=== PATIENT | female | born 1980 | race Caucasian/White ===

== ENCOUNTER 2021-06-19 08:28 | Emergency (ER) | payer MEDICAID, SELFPAY ==
[2021-06-19 08:30] VITALS: BP 157/90; PULSE 78; RESP 17; TEMP 36.2; O2SAT 98; BMI 51.0
--- NOTE | 2021-06-19 08:43 | EDS_ITS ---
HPI History of Present Illness Chief Complaint: Lower Extremity Injury Informant: patient Onset/Context/Timing Onset: Days (3) Context: Gradual Onset Timing: Continuous Quality of Pain: Aching Location: dorsum R midfoot Current Severity: Moderate Maximum Severity: Severe Worsened by: walking/WBing, dorsiflexing foot and toes Relieved by: remaining still Associated Symptoms Associated Symptoms: Negative for Parasthesia, Weakness and Loss of Funtion Narrative Narrative: Patient states she dropped a pole accidentally right on her right dorsal midfoot couple months ago. Has been hurting off and on since then, but worse in the past 3 days in the same location. She states she was at a haunted house for [place] a week ago, and she thinks she stepped wrong while she was there and is unsure if maybe this is related to the worsening pain for the last several days. She denies any other known injury 3 days ago. No neurologic symptoms or fevers/chills or break in the skin/wounds. [facility] Medical History (Updated 06/19/21 @ 08:[address] Cortez Guzman MD) Anemia Medical History no medical history Home Medications hydrochlorothiazide 25 mg PO DAILY 06/19/21 [History Last Taken Unknown] naproxen 500 mg PO BID PRN #14 tab 06/19/21 [Rx Last Taken Unknown] Allergy/AdvReac Type Severity Reaction Status Date / Time Penicillins Allergy Hives Verified 06/19/21 08:28 Social History Smoking Status: Former smoker ROS ROS ED Constitutional Constitutional ED: Denies chills or fever(s) Musculoskeletal Musculoskeletal: Reports extremity pain; Denies neck pain Integumentary Denies Abrasions, rash or wounds Neurologic Neurologic: Denies paresthesias or weakness EXAM Physical Exam Const Vital Signs: 06/19/21 08:30 Temperature 97.2 F L Temperature Source Temporal Pulse Rate 78 Respiratory Rate 17 Blood Pressure 157/90 H Blood Pressure Mean 112 Pulse Ox 98 Oxygen Delivery Method Room Air Positive well nourished, well developed and obese General Appearance ED: well developed and NAD Nutritional Appearance: obese Neck full ROM and supple Back/Spine normal ROM and normal to inspection Extremity Extremity Narrative: Able to range her foot/ankle/toes on the right, but with pain. No bony tenderness throughout the foot and ankle. Normal inspection. No deformities. No signs of skin abnormalities, erythema, excessive warmth. 2+/4 bounding dorsalis pedis pulse with brisk cap refill all toes. Plantar aspect normal-appearing and nontender as well. Neuro oriented x3, no focal motor deficits and no sensory deficits noted Sensorium / Orientation: alert Psych mental status grossly normal and thought process normal Skin no wounds Skin Narrative: Normal-appearing skin without discoloration or lesions throughout the right foot and ankle. Rashes: no rashes MDM MDM MDM Narrative Medical decision making narrative: X-rays are obtained and on mitral rotation 3 views right foot are unremarkable. Patient is reassured there are no acute fractures. If she has persistent pain she is advised to follow-up with podiatry to whom she is referred, and she is given a postop shoe to help ambulating here. Advised to use NSAIDs as needed for pain she was given a dose here prior to discharge. Radiography Diagnostic Testing: Clinical Impression(s) from Imaging Studies Foot X-Ray 06/19/21 08:43 IMPRESSION: No demonstrated acute osseous injury. Electronically Signed: Jono Kang MD at 9:18 EDT Tel , Service support , Discharge Plan Triage Chief Complaint: Lower Extremity Injury ED Provider: Cortez Guzman Dx/Rx/DC Orders Clinical Impression: Acute pain of right foot Instructions: Treating?Strains and Sprains Prescriptions: New naproxen 500 MG tablet 500 mg PO BID PRN Qty: 14 RF: 0 No Action hydrochlorothiazide 25 mg tablet 25 mg PO DAILY RF: 0 Primary Care Provider: Care Physician,No Primary Referrals: Gemma Schroeder DPM [STAFF PHYSICIAN] - 3-5 Days if not improving Care Physician,No Primary [Primary Care Provider] - Disposition Disposition: Home, Self Care
--- NOTE | 2021-06-19 08:43 | RAD_ITS ---
STUDY: X-RAY - RIGHT FOOT CLINICAL: Female, 41 years old. Pain TECHNIQUE: 3 view(s) of the foot. COMPARISON: None. FINDINGS: There is a small plantar calcaneal spur. Normal visualized subtalar, talonavicular, calcaneocuboid, tarsal and tarsometatarsal articulations. Normal metatarsi. Normal metatarsophalangeal joint of the great toe. Normal tibial and fibular sesamoid bones. Normal interphalangeal joint of the great toe. Normal phalanges of the great toe. Normal second through fifth metatarsophalangeal joints. Normal interphalangeal joints and phalanges of the lesser toes. The soft tissue structures are unremarkable. RAD/Foot min 3 Views IMPRESSION: No demonstrated acute osseous injury. Electronically Signed: Jono Kang MD at 9:18 EDT Tel , Service support ,
[2021-06-19 09:32] VITALS: BP 118/76; PULSE 70; RESP 16; O2SAT 95
== END 2021-06-19 09:37 | disposition home or self-care (01) ==
PROVIDERS: Emergency Provider Emergency Medicine
DX: M79.671 Pain in right foot (principal); E66.9 Obesity, unspecified; Z79.899 Other long term (current) drug therapy; Z87.891 Personal history of nicotine dependence
CPT/HCPCS: 73630; 99283

== ENCOUNTER 2021-06-21 09:18 | Emergency (ER) | payer MEDICAID, SELFPAY ==
[2021-06-21 09:19] VITALS: BP 148/99; PULSE 95; RESP 16; TEMP 35.9; O2SAT 97; BMI 50.3
--- NOTE | 2021-06-21 09:46 | EDS_ITS ---
HPI History of Present Illness HPI Narrative: Patient presents with right foot pain that has been getting worse over the past 5 days. Patient was seen here recently and had x-rays which were negative. Patient was given a postop shoe at that time and was referred to podiatry. Patient states she has not followed up with podiatry yet. Patient states her pain is worse today. Patient states it is worse with any walking or movement. Patient denies any specific trauma or injury. Patient describes her pain as burning and pressure. Patient denies any paresthesias or weakness. Chief Complaint: Lower Extremity Injury Onset/Context/Timing Onset: Days (5) Context: Gradual Onset Timing: Continuous Quality of Pain: Burning and - (Pressure) Location: Right second, third, and fourth toes Worsened by: Walking, movement Relieved by: Nothing Associated Symptoms Associated Symptoms: Negative for Parasthesia and Weakness PFSH PFSH Medical History Anemia Hypothyroidism Home Medications hydrochlorothiazide 25 mg PO DAILY 06/19/21 [History Last Taken Unknown] acetaminophen-codeine 1 tab PO Q6H PRN #10 tab 06/21/21 [Rx Last Taken Unknown] Allergy/AdvReac Type Severity Reaction Status Date / Time Penicillins Allergy Hives Verified 06/21/21 09:21 Surgical History H/O: hysterectomy History of cholecystectomy Hx of appendectomy Social History Smoking Status: Former smoker ROS ROS ED Constitutional Constitutional ED: Denies chills or fever(s) Eyes Eyes: Denies blurry vision or change in vision ENT ENT ED: Denies rhinorrhea or sore throat Cardiovascular Cardiovascular: Denies chest pain or palpitations Respiratory/Chest Respiratory/Chest: Denies cough or dyspnea Gastrointestinal Gastrointestinal: Reports nausea; Denies vomiting Genitourinary Genitourinary ED: Denies dysuria or hematuria Musculoskeletal Musculoskeletal: Denies back pain or neck pain Integumentary Denies abscess or rash Neurologic Neurologic: Denies headache(s) or weakness Allergic/Immunologic Allergic/Immunologic ED: Denies mouth swelling or urticaria EXAM Physical Exam Const Vital Signs: 06/21/21 09:19 Temperature 96.6 F L Temperature Source Temporal Pulse Rate 95 Respiratory Rate 16 Blood Pressure 148/99 H Blood Pressure Mean 115 Pulse Ox 97 Oxygen Delivery Method Room Air Positive well nourished, well developed and obese General Appearance ED: well developed Nutritional Appearance: obese HEENT Reports moist mucous membranes Neck full ROM Extremity Extremity Narrative: There is tenderness over the right second, third, and fourth toes. There is no edema or ecchymosis. There is no bony crepitance or step-off. Range of motion was limited in all motion of the right foot and toes secondary to pain. There is no tenderness over the medial or lateral malleoli. There is no calf tenderness. There is no proximal fibular tenderness. There is no tenderness over the fifth metatarsal. Pedal pulses are equal bilaterally. Sensation was intact to light touch in all digits. Capillary refill was less than 2 seconds in all digits. Neuro oriented x3, CN's II-XII intact bilaterally, moves all extremities and no sensory deficits noted Sensorium / Orientation: alert Motor Exam: strength 5/5 throughout MDM MDM MDM Narrative Medical decision making narrative: Patient was given a dose of Western here. X- rays of the right foot were repeated. There are 3 views. On my interpretation, there is no acute fracture. There is a plantar spur noted. Radiologist also interpreted the x-rays and agrees. CBC was within normal limits. Sed rate was elevated at 42. Uric acid was slightly elevated at 7.7. C-reactive protein was slightly elevated at 29.8. Patient was advised of her findings. Patient was instructed to continue the anti-inflammatory medicine as needed for her pain. Patient was given a prescription for a short course of Tylenol 3. Patient was instructed to ice and elevate the right foot. Patient was instructed to continue using the postop shoe. Patient was instructed to follow-up with podiatry in 3 to 5 days. Patient understood and was agreeable with the plan. All questions were answered. Lab Data Attestation: I reviewed the patient's lab results. Labs: Laboratory Results - last 24 hr 06/21/21 06/21/21 10:05 10:05 WBC 7.0 RBC 4.82 Hgb 12.1 Hct 38.0 MCV 78.8 L MCH 25.1 L MCHC 31.8 L RDW Std Deviation 42.4 RDW Coeff of Sammi 14.8 H Plt Count 313 MPV 9.6 Immature Gran % (Auto) 0.400 Neut % (Auto) 63.3 Lymph % (Auto) 27.1 O'Brien % (Auto) 6.6 Eos % (Auto) 1.9 Baso % (Auto) 0.7 Absolute Neuts (auto) 4.4 Absolute Lymphs (auto) 1.88 Nucleated RBC % 0 ESR 42 H Uric Acid 7.7 H C-React Prot Ext Range 29.80 H Radiography Diagnostic Testing: Clinical Impression(s) from Imaging Studies Foot X-Ray 06/21/21 10:14 IMPRESSION: Plantar spur. Electronically Signed: Terrell Pedersen MD at 10:31 EDT , Service support , Discharge Plan Triage Chief Complaint: Lower Extremity Injury ED Provider: Isaac Winkler Dx/Rx/DC Orders Clinical Impression: Acute pain of right foot, Inflammation of foot joint Instructions: ED Pain, Acute, Uncertain Cause, ED RICE Prescriptions: New acetaminophen-codeine 300-30 mg tablet 1 tab PO Q6H PRN (Reason: pain) Qty: 10 RF: 0 No Action hydrochlorothiazide 25 mg tablet 25 mg PO DAILY RF: 0 Primary Care Provider: Care Physician,No Primary Referrals: Gemma Schroeder DPM [STAFF PHYSICIAN] - 3-5 Days Care Physician,No Primary [Primary Care Provider] - Disposition Disposition: Home, Self Care
[2021-06-21] MEDS: HYDROcodone Bitartrate/Apap 5/325 Tablet PO (09:57)
[2021-06-21 10:11] LABS: Absolute Lymphocyte Count 1.88 X10^3/uL (0.83-4.51); Absolute Neutrophil Count 4.4 X10^3/uL (2.0-7.7); Basophil# 0.05 X10^3/uL; Basophil% 0.7 % (0-1); Eosinophil# 0.13 X10^3/uL; Eosinophils% 1.9 % (0-5); Hemoglobin 12.1 g/dL (12.0-15.0); Lymphocyte # 1.88 X10^3/ul (0.83-4.51); Lymphocyte % 27.1 % (19-41); Mean Corp Hgb Conc 31.8 g/dL (32-36); Mean Corpuscular Hgb 25.1 pg (27.0-32.0); Mean Corpuscular Volume 78.8 fL (81-99); Mean Platelet Vol. 9.6 fl (6.2-12.0); Monocyte# 0.46 X10^3/uL; Monocyte% 6.6 % (0-10); NRBC Flagged by Analyzer 0 % (0-5); Neutrophil % 63.3 % (47-70); Platelet Count 313 K/mm3 (150-450); RBC Distribution Width CV 14.8 % (11.6-14.6); RBC Distribution Width SD 42.4 fl (35.1-43.9); Red Blood Count 4.82 M/mm3 (4.2-5.4)
--- NOTE | 2021-06-21 10:14 | RAD_ITS ---
STUDY: X-RAY - RIGHT FOOT CLINICAL: Female, 41 years old. Injury/Pain TECHNIQUE: 3 view(s) of the foot. COMPARISON: Comparison is made with prior study dated 06/19/2021. FINDINGS: There is a plantar calcaneal spur. Normal visualized subtalar, talonavicular, calcaneocuboid, tarsal and tarsometatarsal articulations. Normal metatarsi. Normal metatarsophalangeal joint of the great toe. Normal tibial and fibular sesamoid bones. Normal interphalangeal joint of the great toe. Normal phalanges of the great toe. Normal second through fifth metatarsophalangeal joints. Normal interphalangeal joints and phalanges of the lesser toes. The soft tissue structures are unremarkable. RAD/Foot min 3 Views IMPRESSION: Plantar spur. Electronically Signed: Terrell Pedersen MD at 10:31 EDT , Service support ,
[2021-06-21 10:22] LABS: Uric Acid 7.7 mg/dL (2.6-6.0)
[2021-06-21 10:23] LABS: Erythrocyte Sedimentation Rate 42 mm/hr (0-30)
[2021-06-21 11:04] VITALS: PULSE 88; RESP 16; TEMP 36.9; O2SAT 99
== END 2021-06-21 11:08 | disposition home or self-care (01) ==
PROVIDERS: Emergency Provider Emergency Medicine
DX: M19.071 Primary osteoarthritis, right ankle and foot (principal); E66.9 Obesity, unspecified; Z87.891 Personal history of nicotine dependence
CPT/HCPCS: 36415; 73630; 84550; 85025; 85652; 86140; 99283

== ENCOUNTER 2022-08-14 12:11 | Emergency (ER) | payer MEDICAID, SELFPAY ==
[2022-08-14 12:12] VITALS: BP 138/87; PULSE 98; RESP 18; TEMP 36.2; O2SAT 97; BMI 50.3
--- NOTE | 2022-08-14 12:56 | EKG12_ITS ---
Test Reason : CP Blood Pressure : / mmHG Vent. Rate : 074 BPM Atrial Rate : 074 BPM P-R Int : 160 ms QRS Dur : 092 ms QT Int : 374 ms P-R-T Axes : 025 -35 -13 degrees QTc Int : 415 ms Normal sinus rhythm Left axis deviation Abnormal ECG Confirmed by DOUGLAS SUNSHINE, LORIE ([id number]), website/blog editor JEWEL MICHAEL ([id number]) on 08/15/2022 12:53:59 PM Referred By: KASSANDRA Confirmed By:LORIE COLE MD
--- NOTE | 2022-08-14 12:56 | RAD_ITS ---
EXAM: XR CHEST, 1 VIEW CLINICAL INDICATION: chest pain TECHNIQUE: Frontal view of the chest. This report was created using [employer] report generation technology. COMPARISON: None. FINDINGS: LUNGS AND PLEURAL SPACES: Unremarkable. No consolidation or edema. No pneumothorax. No effusion. HEART: Unremarkable. Cardiac silhouette not enlarged. MEDIASTINUM: Central airways and mediastinal contour are unremarkable. BONES/JOINTS: Unremarkable. SOFT TISSUES: Unremarkable. RAD/Chest 1 View (Portable) IMPRESSION: No radiographic evidence of acute cardiopulmonary disease. Electronically Signed: Laureano Crabtree MD at 13:27 EST ,
--- NOTE | 2022-08-14 12:57 | CT_ITS ---
EXAM: CT ABDOMEN AND PELVIS WITHOUT INTRAVENOUS CONTRAST CLINICAL INDICATION: Right flank pain. Prior appendectomy, cholecystectomy and uterus removed TECHNIQUE: Helically acquired images were obtained of the abdomen and pelvis without intravenous contrast. This CT exam was performed using one or more of the following dose reduction techniques: automated exposure control, adjustment of the mA and/or kV according to patient size, and/or use of iterative reconstruction technique. This report was created using [employer] report generation technology. RADIATION DOSE: CTDIvol = 32.20 mGy, DLP = 1600.67 mGy-cm COMPARISON: CT abdomen and pelvis with contrast 06/11/2015. FINDINGS: LOWER THORAX: Unremarkable. Lung bases are clear. No cardiomegaly. No significant pericardial effusion. ABDOMEN: LIVER: Unremarkable. Homogeneous. GALLBLADDER AND BILE DUCTS: Surgical clips in the gallbladder fossa area from cholecystectomy. No intra- or extrahepatic biliary ductal dilation. PANCREAS: Unremarkable. No focal cystic mass. SPLEEN: Unremarkable. Normal size without focal cystic or solid mass. ADRENALS: Unremarkable. No nodules. KIDNEYS AND URETERS: Abnormal thickening of the left renal pelvis containing staghorn calculus extending to the left lower infundibulum. There is minimal left hydronephrosis. STOMACH AND BOWEL: Unremarkable. No stomach or bowel distention. No focal inflammatory change. PELVIS: APPENDIX: Postsurgical absence of the appendix. BLADDER: Unremarkable. REPRODUCTIVE: Postsurgical absence of the uterus. 3.8 x 2.7 cm ovoid density in the right side of the upper pelvis is uncertain for normal right ovary. ABDOMEN and PELVIS: INTRAPERITONEAL SPACE: Unremarkable. No ascites or other fluid collection. No free air. BONES/JOINTS: Unremarkable. No suspicious lytic or blastic abnormality. SOFT TISSUES: Unremarkable. No discrete abdominal or pelvic wall hernia. VASCULATURE: Unremarkable. Abdominal aorta is non-dilated. LYMPH NODES: Unremarkable. No enlarged lymph nodes. CT/Abdomen/Pelvis without Cont IMPRESSION: 1. Abnormal thickening of the left renal pelvis containing large staghorn calculus extending to the left lower renal infundibulum and mild left hydronephrosis. These are new findings when compared to 06/11/2015. 2. 3.8 x 2.7 cm ovoid density in the right upper pelvis is uncertain for normal right ovary since there has been interval hysterectomy. Please correlate with operative history. Electronically Signed: Laureano Crabtree MD at 13:43 EST ,
[2022-08-14 13:02] VITALS: O2SAT 98
[2022-08-14] MEDS: Aspirin 81 MG TAB.CHEW 324 MG PO (13:04)
[2022-08-14 13:14] LABS: Mucous, Urine 0 SEEN /hpf (<or=2+); Red Blood Cells-Urine 0 SEEN /hpf (0-5)
[2022-08-14 13:17] LABS: Color, Urine Yellow (Yellow); Glucose, Dipstick Normal (Normal); Ketone-Dipstick Negative (Negative); Leukocyte Esterase-Dipstick 500 /ul (Negative); Nitrite-Dipstick Positive (Negative); Occult Blood-Urine 250 /ul (Negative); Protein-Dipstick 30 mg/dl (Negative); Urine Bilirubin Dipstick Negative (Negative); Urine Clarity Clear (Clear); Urine Urobilinogen Normal (Normal)
[2022-08-14 13:18] LABS: Absolute Lymphocyte Count 2.33 X10^3/uL (0.83-4.51); Absolute Neutrophil Count 4.9 X10^3/uL (2.0-7.7); Basophil# 0.06 X10^3/uL; Basophil% 0.7 % (0-1); Eosinophil# 0.17 X10^3/uL; Hematocrit 41.3 % (37-47); Hemoglobin 13.3 g/dL (12.0-15.0); Lymphocyte # 2.33 X10^3/ul (0.83-4.51); Lymphocyte % 28.1 % (19-41); Mean Corp Hgb Conc 32.2 g/dL (32-36); Mean Corpuscular Hgb 26.8 pg (27.0-32.0); Mean Corpuscular Volume 83.1 fL (81-99); Mean Platelet Vol. 10.5 fl (6.2-12.0); Monocyte# 0.76 X10^3/uL; Monocyte% 9.2 % (0-10); NRBC Flagged by Analyzer 0 % (0-5); Neutrophil # 4.94 X10^3/uL (2.7-7.7); Neutrophil % 59.5 % (47-70); Platelet Count 336 K/mm3 (150-450); RBC Distribution Width CV 13.2 % (11.6-14.6); RBC Distribution Width SD 39.5 fl (35.1-43.9); Red Blood Count 4.97 M/mm3 (4.2-5.4); White Blood Count 8.3 K/mm3 (4.4-11.0)
[2022-08-14 13:24] LABS: Bacteria 2+ /hpf (None Seen); Squamous Epithelial Cells - UA 0-5 SEEN /hpf (5-10); White Blood Cells 50-100 SEEN /hpf (0-5)
[2022-08-14 13:34] LABS: Anion Gap 7 (5-15); BUN 16 mg/dL (7-18); BUN/Creat Ratio 17.6 RATIO (10-20); Calcium,Total 9.2 mg/dL (8.5-10.1); Chloride 101 mmol/L (98-107); Creatinine, Serum 0.91 mg/dL (0.55-1.02); EST Glomerular Filtration Rate 73 mL/min (>60); Est Glom Filt Rate - Afr Amer 88 mL/min (>60); Estimated Creatinine Clearance 70.96 ml/min; Glucose 89 mg/dL (74-106); Potassium 3.3 mmol/L (3.5-5.1); Sodium Level 137 mmol/L (136-145); Troponin-I HS < 3 pg/mL (3.0-54.0)
[2022-08-14] MEDS: Nitrofurantoin Macrocrystals 100 MG Capsule PO (13:46)
[2022-08-14 13:47] VITALS: BP 107/64; PULSE 18; RESP 61; O2SAT 97
--- NOTE | 2022-08-14 14:20 | EDS_ITS ---
HPI History of Present Illness Chief Complaint: Chest Pain Informant: patient Onset/Context/Timing Onset: Today Activity at onset: sudden Timing: Intermittent and Lasts (10 to 20 minutes) Quality: Positive for Pressure Location: Substernal and Right Chest Worsened By: Nothing Relieved By: Nothing Associated Symptoms: Positive for Nausea, Dyspnea, Lightheadedness, Acid Reflux and Palpitations; Negative for Vomiting, Diaphoresis, Cough or Fever Narrative Narrative: Patient presents with chest pain that began today. Patient states it has been intermittent since around midnight. Patient states it last for proxy 10 to 20 minutes. Patient describes it as a pressure. Patient states it is over the substernal area and then sometimes over the right chest. Patient states nothing makes it worse and nothing makes it better. Patient admits to some nausea but denies any vomiting. Patient admits to some shortness of breath but denies any cough or fevers. Patient admits to some lightheadedness and palpitations. Patient denies any dysuria but admits to some urinary frequency. Patient admits to some right flank pain. CVD Risk Factors: Positive for Hypertension and Smoking; Negative for Diabetes, Hypercholesterolemia or Family History 1' </=55 PE Risk Factors: Negative for Recent Travel/Surgery, Recent Immobilization, Prior DVT or PE, Cancer or OCP + Smoking + >/=35 PFSH PFSH Medical History Anemia delivery delivered DIC (disseminated intravascular coagulation) Hypothyroidism Home Medications hydrochlorothiazide 25 mg tablet 25 mg PO DAILY 06/19/21 [History Last Taken Unknown] nitrofurantoin monohydrate/macrocrystals 100 mg capsule 100 mg PO Q12 #10 CAPSULES 08/14/22 [Rx Last Taken Unknown] Allergy/AdvReac Type Severity Reaction Status Date / Time Penicillins Allergy Hives Verified 06/21/21 09:21 Family History no significant family his no significant family history Surgical History H/O: hysterectomy History of cholecystectomy Hx of appendectomy Social History Smoking Status: Current every day smoker tobacco type: e-cigarettes ROS ROS ED Constitutional Constitutional ED: Denies chills or fever(s) Eyes Eyes: Reports blurry vision; Denies change in vision ENT ENT ED: Denies rhinorrhea or sore throat Cardiovascular Cardiovascular: Reports chest pain, palpitations and racing heartbeat Respiratory/Chest Respiratory/Chest: Reports dyspnea; Denies cough Gastrointestinal Gastrointestinal: Reports nausea; Denies abdominal pain or vomiting Genitourinary Genitourinary ED: Reports urinary frequency; Denies dysuria or hematuria Musculoskeletal Musculoskeletal: Reports back pain; Denies neck pain Integumentary Denies abscess or rash Neurologic Neurologic: Reports headache(s); Denies weakness Allergic/Immunologic Allergic/Immunologic ED: Denies mouth swelling or urticaria EXAM Physical Exam Const Vital Signs: 08/14/22 12:12 08/14/22 12:23 08/14/22 13:02 Temperature 97.2 F L Temperature Source Temporal Pulse Rate 98 Respiratory Rate 18 Respiratory Effort Normal Non-Labored Short of Breath Respiratory Pattern Normal Blood Pressure 138/87 H Blood Pressure Mean 104 Pulse Ox 97 98 Oxygen Delivery Method Room Air Room Air 08/14/22 13:47 Temperature Temperature Source Pulse Rate 18 L Respiratory Rate 61 H Respiratory Effort Respiratory Pattern Blood Pressure 107/64 Blood Pressure Mean 78 Pulse Ox 97 Oxygen Delivery Method Room Air Positive well nourished, well developed and obese General Appearance ED: well developed and NAD Nutritional Appearance: obese HEENT normocephalic and atraumatic Eyes PERRL and EOMs intact bilaterally Neck supple and no JVD Chest Wall palpation of chest normal Resp normal respiratory effort and clear to auscultation bilaterally Effort and Inspection: Negative for respiratory distress Cardio regular rate, regular rhythm and no murmurs GI normal to inspection, nondistended, normoactive bowel sounds, soft to palpation, non-tender and non-distended Extremity normal to inspection General Extremety ED: Negative for edema or tenderness General Extremity: Negative for edema Neuro oriented x3, CN's II-XII intact bilaterally and no sensory deficits noted Sensorium / Orientation: awake and alert Motor Exam: strength 5/5 throughout Psych mental status grossly normal Heart Score History: Slightly/Non-Suspicious ECG: Normal Age: </= 45 years Risk Factors: 1 or 2 Risk Factors Troponin: </= Normal Limit Score: 1 MDM MDM MDM Narrative Medical decision making narrative: Patient was given dose of aspirin here. EKG was obtained. On my interpretation, it showed a normal sinus rhythm with a rate of 74. [place] interval, QRS interval, and QTc intervals were all normal. There is left axis deviation at -35. There are no acute ST or T wave changes. Portable 1 view chest x-ray was obtained. On my interpretation, lung garcia are clear. There is normal cardiac silhouette. Bony thorax is normal. There is no acute process noted. Radiologist also interpreted the x-ray and agrees. CBC was within normal limits. Basic metabolic profile was essentially within normal limits. Potassium was slightly low at 3.3. High-sensitivity troponin was less than 3. Urinalysis shows a leukocyte esterases of 500 with 50-100 white blood cells and 2+ bacteria. There are positive nitrites. Urine culture was ordered. Patient was given a dose of Macrobid here. CT scan of the abdomen pelvis was obtained. There is a staghorn calculus in the left renal pelvis with mild hydronephrosis. Patient does not have any left flank pain. This was interpreted by the radiologist and reviewed by myself. Patient was advised of her findings. Patient was given a prescription for Macrobid. Patient was instructed to drink plenty of fluids. Patient was instructed to take Tylenol or ibuprofen as needed for any pain. Patient was instructed to follow-up with her primary care physician in 3 to 5 days for repeat evaluation. Patient understood and was agreeable with the plan. All questions were answered. Lab Data Attestation: I reviewed the patient's lab results. Labs: Laboratory Results - last 24 hr 08/14/22 08/14/22 08/14/22 12:30 12:30 13:05 WBC 8.3 RBC 4.97 Hgb 13.3 Hct 41.3 MCV 83.1 MCH 26.8 L MCHC 32.2 RDW Std Deviation 39.5 RDW Coeff of Sammi 13.2 Plt Count 336 MPV 10.5 Immature Gran % (Auto) 0.500 Neut % (Auto) 59.5 Lymph % (Auto) 28.1 Ingham % (Auto) 9.2 Eos % (Auto) 2.0 Baso % (Auto) 0.7 Absolute Neuts (auto) 4.9 Absolute Lymphs (auto) 2.33 Nucleated RBC % 0 Sodium 137 Potassium 3.3 L Chloride 101 Carbon Dioxide 29.0 Anion Gap 7 BUN 16 Creatinine 0.91 Estim Creat Clear Calc 70.96 Est GFR (MDRD) Af Amer 88 Est GFR (MDRD) Non-Af 73 BUN/Creatinine Ratio 17.6 Glucose 89 Calcium 9.2 Troponin I High Sens < 3 L Urine Color Yellow Urine Clarity Clear Urine pH 7.0 Ur Specific Blanchard 1.010 Urine Protein 30 H Urine Glucose (UA) Normal Urine Ketones Negative Urine Occult Blood 250 H Urine Nitrite Positive H Urine Bilirubin Negative Urine Urobilinogen Normal Ur Leukocyte Esterase 500 H Urine RBC 0 SEEN Urine WBC 50-100 SEEN Ur Squamous Epith Cells 0-5 SEEN Urine Bacteria 2+ Urine Mucus 0 SEEN Radiography Diagnostic Testing: Clinical Impression(s) from Imaging Studies Chest X-Ray 08/14/22 12:56 IMPRESSION: No radiographic evidence of acute cardiopulmonary disease. Electronically Signed: Laureano Crabtree MD at 13:27 EST Reading Location ID and State: [facility] / [place] , Service support , Abdomen/Pelvis CT 08/14/22 12:57 IMPRESSION: 1. Abnormal thickening of the left renal pelvis containing large staghorn calculus extending to the left lower renal infundibulum and mild left hydronephrosis. These are new findings when compared to 06/11/2015. 2. 3.8 x 2.7 cm ovoid density in the right upper pelvis is uncertain for normal right ovary since there has been interval hysterectomy. Please correlate with operative history. Electronically Signed: Laureano Crabtree MD at 13:43 EST , Discharge Plan Triage Chief Complaint: Chest Pain ED Provider: Isaac Winkler Dx/Rx/DC Orders Clinical Impression: Chest pain of uncertain etiology, Urinary tract infection, Exogenous obesity Instructions: ED Chest Pain, Uncertain Cause, ED Cystitis Female Adult Prescriptions: New nitrofurantoin monohyd/m-cryst [nitrofurantoin monohyd/m-cryst] 100 mg capsule 100 mg PO Q12 Qty: 10 0RF No Action hydrochlorothiazide 25 mg tablet 25 mg PO DAILY Label Comments: take 1 tablet by mouth once daily Primary Care Provider: Care Physician,No Primary Referrals: Mel Marin MD [Med Staff - Nature Photographer] - 3-5 Days Care Physician,No Primary [Primary Care Provider] - Disposition Disposition: Home, Self Care
[2022-08-14 14:34] VITALS: BP 124/81; PULSE 81; RESP 16; O2SAT 98
== END 2022-08-14 14:36 | disposition home or self-care (01) ==
PROVIDERS: Emergency Provider Emergency Medicine; Visit Provider Emergency Medicine
DX: R07.9 Chest pain, unspecified (principal); N13.6 Pyonephrosis; R35.0 Frequency of micturition; R11.0 Nausea; R06.02 Shortness of breath; R00.2 Palpitations; E66.09 Other obesity due to excess calories; F17.290 Nicotine dependence, other tobacco product, uncomplicated; Z79.899 Other long term (current) drug therapy
CPT/HCPCS: 71045; 74176; 80048; 81001; 84484; 85025; 87077; 87086; 87088; 87186; 93005; 99284

== ENCOUNTER 2022-10-18 17:11 | Emergency (ER) | payer MEDICAID, SELFPAY ==
[2022-10-18 17:11] VITALS: BP 164/107; PULSE 88; RESP 16; TEMP 36.2; O2SAT 98; BMI 52.6
--- NOTE | 2022-10-18 17:43 | CT_ITS ---
EXAMINATION : Head CT w/out contrast HISTORY : Headache with hypertension COMPARISON : None. TECHNIQUE : Multiple contiguous axial images were obtained from the skull base to the vertex without intravenous contrast. A radiation dose optimization technique was used for this scan. FINDINGS : The ventricles and sulci are normal in size. There is no evidence for acute intracranial hemorrhage, mass effect, or midline shift. There is no extra-axial fluid collection. There is normal da silva-white differentiation, without CT evidence of acute ischemia or infarct. The skull base and calvarium are unremarkable. The orbits are unremarkable. The paranasal sinuses are clear. The mastoid air cells are well-aerated. The soft tissues are unremarkable. CT/Brain/Head without Contrast IMPRESSION: No acute intracranial abnormality. Electronically Signed: Jaiden Prakash MD at 18:46 EST ,
--- NOTE | 2022-10-18 17:44 | EKG12_ITS ---
Test Reason : SOB Blood Pressure : / mmHG Vent. Rate : 076 BPM Atrial Rate : 076 BPM P-R Int : 160 ms QRS Dur : 092 ms QT Int : 404 ms P-R-T Axes : 050 -40 001 degrees QTc Int : 454 ms Normal sinus rhythm Left axis deviation Cannot rule out Anterior infarct , age undetermined Abnormal ECG Confirmed by DOUGLAS SUNSHINE, LORIE ([id number]), offline editor JEWEL MICHAEL ([id number]) on 10/19/2022 9:03:03 AM Referred By: CHAPO Confirmed By:LORIE COLE MD
--- NOTE | 2022-10-18 17:45 | EX.ED.DYSGE1 ---
HPI History of Present Illness Chief Complaint: Hypertension Narrative Narrative: Patient with past medical history of hypertension, states she takes hydrochlorothiazide 25 mg at night and has so for years, presents with elevated blood pressure reading and multiple somatic complaints. She states over the last few days she has had a headache, dizziness and lightheadedness, felt like her ears were ringing, and on fire. She denies any fevers or chills. No cough. She states she has had intermittent chest pain and shortness of breath since this morning but denies any upper respiratory infection type symptoms. She last took her medication yesterday evening. Because she has been feeling poorly, her mother took her blood pressure and it was elevated at 174 systolic. She denies any exacerbating or alleviating factors. She states that she has been keeping track of her blood pressure, and is usually normal in the 120s. [facility] Medical History (Updated 10/18/22 @ 19:31 by Laureano Gabriel MD) Anemia delivery delivered DIC (disseminated intravascular coagulation) Hypertension Home Medications hydrochlorothiazide 25 mg tablet 25 mg PO DAILY 06/19/21 [History Last Taken Unknown] Allergy/AdvReac Type Severity Reaction Status Date / Time No Known Allergies Allergy Verified 10/18/22 17:13 Surgical History H/O: hysterectomy History of cholecystectomy Hx of appendectomy Social History Smoking Status: Current every day smoker tobacco type: e-cigarettes ROS ROS ED ROS Narrative Constitutional: No fever, no chills. HEENT: No sore throat. No neck pain. No loss of vision. No rhinorrhea. Cardiovascular: Intermittent chest pain. No palpitations. No pedal edema. Respiratory: No cough, intermittent shortness of breath. Abdominal: No abdominal pain. No nausea. No vomiting. Genitourinary: No dysuria. No hematuria. Musculoskeletal: No myalgias. No arthralgias. Neurologic: Positive headaches. Positive dizziness. Positive lightheadedness. Positive tinnitus. Skin: No rash. No change in color. Psychiatric: No depression. No anxiety. EXAM Physical Exam Narrative Exam Narrative: Afebrile. Vital signs noted. Nontoxic-appearing. HEENT: Normocephalic. Atraumatic. PERRL, EOMI. Neck soft and supple. No point tenderness or step off. Cardiovascular: Regular rate and rhythm. No murmurs, rubs, or gallops appreciated. Respiratory: No tachypnea. Lungs clear to auscultation bilaterally. Gastrointestinal: Abdomen soft, nontender, with normoactive bowel sounds. No rebound or guarding. Neurological: Awake. Alert. Nonfocal, nonlateralizing. Skin: No rash. Normal color. No pallor. Musculoskeletal: No pedal edema. Full range of motion extremities. Const Vital Signs: 10/18/22 17:11 10/18/22 18:39 Temperature 97.2 F L Temperature Source Temporal Pulse Rate 88 Respiratory Rate 16 Respiratory Pattern Normal Blood Pressure 164/107 H Blood Pressure Mean 126 Pulse Ox 98 Oxygen Delivery Method Room Air MDM MDM MDM Narrative Medical decision making narrative: In triage, blood pressure is elevated at 164/107. I do feel that she is having more of a hypertensive urgency currently, but given her lightheadedness, and headache, I am concerned for hypertensive intracranial hemorrhage. While her neurological examination is grossly unremarkable, CT imaging of the brain will be obtained. For her chest pain and shortness of breath, I will perform laboratory work along with EKG and chest x-ray. I do feel that she may require more medication or additional medication for her elevated blood pressure. Upon repeat examination, she is feeling improved and her blood pressure is 126 systolic. I reviewed her laboratory work and she has a normal white count of 7.3, hemoglobin normal at 13.4, hematocrit 40.7, platelet count normal at 342. CMP shows normal sodium of 139 and potassium normal at 3.6 with glucose appropriately elevated at 100 with a normal anion gap of 8. High-sensitivity troponin is 3, and this is greater than a 6-hour troponin. BNP is normal at 6.8. CT of the brain radiology report was reviewed and there is no evidence of acute intracranial hemorrhage. I interpreted her chest x-ray as no acute process, no pneumothorax or pneumonia, and I reviewed the radiology report which confirms this. At this point in time, she was told that she may need to be started on medication to control her blood pressure. She should follow-up with her primary care provider as soon as possible. Return instructions to the emergency department were reviewed. Disposition is discharged home in stable condition. Lab Data Attestation: I reviewed the patient's lab results. Labs: Laboratory Results - last 24 hr 10/18/22 10/18/22 10/18/22 18:07 18:07 18:07 WBC 7.3 RBC 4.88 Hgb 13.4 Hct 40.7 MCV 83.4 MCH 27.5 MCHC 32.9 RDW Std Deviation 38.9 RDW Coeff of Sammi 13.0 Plt Count 342 MPV 9.6 Immature Gran % (Auto) 0.400 Neut % (Auto) 57.9 Lymph % (Auto) 30.1 [place] % (Auto) 8.8 Eos % (Auto) 1.8 Baso % (Auto) 1.0 Absolute Neuts (auto) 4.2 Absolute Lymphs (auto) 2.19 Nucleated RBC % 0 Sodium 139 Potassium 3.6 Chloride 104 Carbon Dioxide 27.0 Anion Gap 8 BUN 10 Creatinine 0.88 Estim Creat Clear Calc 73.38 Est GFR (MDRD) Af Amer 91 Est GFR (MDRD) Non-Af 75 BUN/Creatinine Ratio 11.3 Glucose 100 Calcium 9.1 Total Bilirubin 0.30 AST 16 ALT 31 Alkaline Phosphatase 95 Troponin I High Sens 3 B-Natriuretic Peptide 6.8 Total Protein 7.8 Albumin 3.4 Globulin 4.4 H Albumin/Globulin Ratio 0.8 L Radiography Diagnostic Testing: Clinical Impression(s) from Imaging Studies Brain CT 10/18/22 17:43 IMPRESSION: No acute intracranial abnormality. Electronically Signed: Jaiden Prakash MD at 18:46 EST , Chest X-Ray 10/18/22 18:24 IMPRESSION: No acute radiographic abnormalities. Electronically Signed: Jaiden Prakash MD at 18:49 EST , Discharge Plan Triage Chief Complaint: Hypertension ED Provider: Laureano Gabriel Dx/Rx/DC Orders Clinical Impression: Elevated blood pressure reading with diagnosis of hypertension, Headache, Dizziness Instructions: ED Dizziness, Uncertain Cause, ED Hypertension, Established, ED Pain, Acute, Uncertain Cause Prescriptions: No Action hydrochlorothiazide 25 mg tablet 25 mg PO DAILY Label Comments: take 1 tablet by mouth once daily Primary Care Provider: Care Physician,No Primary Referrals: [facility] Doctor,Out of [Non-Staff] - Activity Restrictions/Additional Instructions: Keep track of your blood pressure for your primary care provider. Follow-up with them as soon as possible as you may need to be started on additional medication for your blood pressure. Return with sustained high blood pressure, new or worsening symptoms. Disposition Disposition: Home, Self Care
[2022-10-18 18:18] LABS: Absolute Lymphocyte Count 2.19 X10^3/uL (0.83-4.51); Absolute Neutrophil Count 4.2 X10^3/uL (2.0-7.7); Basophil# 0.07 X10^3/uL; Eosinophil# 0.13 X10^3/uL; Eosinophils% 1.8 % (0-5); Hematocrit 40.7 % (37-47); Hemoglobin 13.4 g/dL (12.0-15.0); Lymphocyte # 2.19 X10^3/ul (0.83-4.51); Lymphocyte % 30.1 % (19-41); Mean Corp Hgb Conc 32.9 g/dL (32-36); Mean Corpuscular Hgb 27.5 pg (27.0-32.0); Mean Corpuscular Volume 83.4 fL (81-99); Mean Platelet Vol. 9.6 fl (6.2-12.0); Monocyte# 0.64 X10^3/uL; Monocyte% 8.8 % (0-10); NRBC Flagged by Analyzer 0 % (0-5); Neutrophil # 4.22 X10^3/uL (2.7-7.7); Neutrophil % 57.9 % (47-70); Platelet Count 342 K/mm3 (150-450); RBC Distribution Width SD 38.9 fl (35.1-43.9); Red Blood Count 4.88 M/mm3 (4.2-5.4); White Blood Count 7.3 K/mm3 (4.4-11.0)
--- NOTE | 2022-10-18 18:24 | RAD_ITS ---
INDICATION: Chest pain EXAMINATION/TECHNIQUE: X-RAY - XR Chest 1 View COMPARISON: 08/14/2022. FINDINGS: The lungs are clear. The cardiomediastinal silhouette is unremarkable. No pleural effusion or pneumothorax. No acute osseous abnormalities. RAD/Chest 1 View (Portable) IMPRESSION: No acute radiographic abnormalities. Electronically Signed: Jaiden Prakash MD at 18:49 EST ,
[2022-10-18 18:31] LABS: ALB/GLOB Ratio 0.8 RATIO (0.9-2.4); AST(SGOT) 16 U/L (15-37); Alanine Aminotransfer ALT/SGPT 31 U/L (13-56); Albumin, Serum 3.4 g/dL (3.2-5.0); Alkaline Phosphatase 95 U/L (45-117); Anion Gap 8 (5-15); BUN 10 mg/dL (7-18); BUN/Creat Ratio 11.3 RATIO (10-20); Calcium,Total 9.1 mg/dL (8.5-10.1); Chloride 104 mmol/L (98-107); Creatinine, Serum 0.88 mg/dL (0.55-1.02); EST Glomerular Filtration Rate 75 mL/min (>60); Est Glom Filt Rate - Afr Amer 91 mL/min (>60); Estimated Creatinine Clearance 73.38 ml/min; Globulin 4.4 g/dL (2.2-4.2); Glucose 100 mg/dL (74-106); Potassium 3.6 mmol/L (3.5-5.1); Protein, Total 7.8 g/dL (6.4-8.2); Sodium Level 139 mmol/L (136-145); Troponin-I HS 3 pg/mL (3.0-54.0)
[2022-10-18 19:12] LABS: BNP,B-Type NATRIURETIC PEPTIDE 6.8 pg/mL (0-100)
[2022-10-18 19:40] VITALS: BP 119/80; PULSE 68; RESP 15; O2SAT 96
== END 2022-10-18 19:45 | disposition home or self-care (01) ==
PROVIDERS: Emergency Provider Emergency Medicine; Visit Provider Emergency Medicine
DX: R42 Dizziness and giddiness (principal); R07.9 Chest pain, unspecified; R06.02 Shortness of breath; I10 Essential (primary) hypertension; R51.9 Headache, unspecified; F17.290 Nicotine dependence, other tobacco product, uncomplicated
CPT/HCPCS: 70450; 71045; 80053; 83880; 84484; 85025; 93005; 99284; A4216

== ENCOUNTER 2024-11-17 11:44 | Observation (INO) | payer MEDICAID, SELFPAY ==
[2024-11-17] VITALS (12 sets, daily range): BP systolic 111–145; BP diastolic 56–110; PULSE 67–104; RESP 10–18; TEMP 36.1–37.1; O2SAT 95–100; BMI 48.7; BMI 49.1
--- NOTE | 2024-11-17 12:12 | CT_ITS ---
PROCEDURE: STROKE BRAIN/HEAD WITHOUT CONT 11/17/2024 REASON FOR EXAM: NEURO DEFICIT, ACUTE, STROKE SUSPECTED TECHNIQUE: CT head without contrast, also with sagittal and coronal reconstructed images obtained. One or more dose reduction techniques were used (e.g., Automated exposure control, adjustment of the mA and/or kV according to patient size, use of iterative reconstruction technique RADIATION DOSE SUMMARY: CTDlvol: 44.99 mGy DLP: 829.85 mGycm COMPARISON: Head CT of 10/18/2022 FINDINGS: No intracranial hemorrhage, mass, or mass effect is seen. Ventricles appear symmetric and within the normal range. No extra-axial fluid collection is seen. The orbits show no abnormality. The visualized paranasal sinuses appear clear, as do the mastoid air cells. No acute osseous process is evident. CT/STROKE Brain/Head without Cont IMPRESSION: No intracranial hemorrhage or other acute process is seen at this time. Follow up imaging if and as clinically appropriate. [place] Alert: No intracranial hemorrhage is seen on this stroke alert. This critical information above was relayed directly by me by telephone to Sukhwinder Spain on 11/17/2024 at 11:42 am with readback verification. Reading Location: [id number]
--- NOTE | 2024-11-17 12:12 | EKG12_ITS ---
Test Reason : NEURO Blood Pressure : */* mmHG Vent. Rate : 82 BPM Atrial Rate : 82 BPM P-R Int : 162 ms QRS Dur : 90 ms QT Int : 386 ms P-R-T Axes : 46 -36 -2 degrees QTcB Int : 450 ms Normal sinus rhythm Left axis deviation Nonspecific T wave abnormality Abnormal ECG Confirmed by DOUGLAS SUNSHINE, LORIE ([id number]), editor news JEWEL MICHAEL ([id number]) on 11/18/2024 8:20:49 AM Referred By: Confirmed By: LORIE COLE MD
--- NOTE | 2024-11-17 12:12 | CT_ITS ---
PROCEDURE: STROKE CTA HEAD AND NECK W/CON 11/17/2024 REASON FOR EXAM: NEURO DEFICIT, ACUTE, STROKE SUSPECTED TECHNIQUE: CTA imaging of the head and neck from the aortic arch to the skull vertex with intravenous contrast. Coronal and Sagittal reconstruction series were provided. 3D, 3D post processing, 3D reconstructions, Maximum intensity projection (MIPs) Volume rendering and Shaded surface rendering was provided. One or more dose reduction techniques were used (e.g., Automated exposure control, adjustment of the mA and/or kV according to patient size, use of iterative reconstruction technique). # of known CTs in the past 12 months: 0 # of known Cardiac Nuclear Medicine Studies in the past 12 months: 0 RADIATION DOSE SUMMARY: CTDlvol: 44.76 mGy DLP: 817.97 mGycm COMPARISON: Head CT of 11/17/2024. FINDINGS: Cervical CT angiogram: No area of stenosis or obstruction is seen. No aneurysm is noted. Intracranial CT angiogram: No area of stenosis or obstruction is seen. No aneurysm is evident. Other findings: Neck: No cervical adenopathy is seen. Lungs: Visualized lung apices are unremarkable in appearance. Bones: Mild degenerative changes of the cervical spine are most apparent at the C5-C6 level. CT/STROKE CTA Head AND Neck W/Con IMPRESSION: No area of stenosis or obstruction is seen. No aneurysm is identified. Reading Location: [id number]
[2024-11-17 12:28] LABS: Absolute Lymphocyte Count 2.36 X10^3/uL (0.83-4.51); Absolute Neutrophil Count 5.8 X10^3/uL (2.0-7.7); Basophil# 0.08 X10^3/uL; Basophil% 0.9 % (0-1); Eosinophil# 0.15 X10^3/uL; Eosinophils% 1.7 % (0-5); Hematocrit 38.8 % (37-47); Hemoglobin 13.1 g/dL (12.0-15.0); Lymphocyte # 2.36 X10^3/ul (0.83-4.51); Lymphocyte % 26.1 % (19-41); Mean Corp Hgb Conc 33.8 g/dL (32-36); Mean Corpuscular Hgb 28.5 pg (27.0-32.0); Mean Corpuscular Volume 84.3 fL (81-99); Mean Platelet Vol. 9.8 fl (6.2-12.0); Monocyte# 0.67 X10^3/uL; Monocyte% 7.4 % (0-10); NRBC Flagged by Analyzer 0 % (0-5); Neutrophil # 5.76 X10^3/uL (2.7-7.7); Neutrophil % 63.6 % (47-70); Platelet Count 371 K/mm3 (150-450); RBC Distribution Width CV 12.2 % (11.6-14.6); RBC Distribution Width SD 36.7 fl (35.1-43.9); White Blood Count 9.1 K/mm3 (4.4-11.0)
[2024-11-17] MEDS: 0.9% Normal Saline (1000mL) 1,000 ML 999 ML IV (12:42)
[2024-11-17 12:43] LABS: International Normalized Ratio 1.1; Prothrombin Time (Protime)PT. 13.9 SECONDS (11.7-14.9)
[2024-11-17] MEDS: Aspirin 325 MG Tablet PO (12:45)
--- NOTE | 2024-11-17 12:50 | CM.ED ---
Social Work: Date of referral: 11/17/24 Reason for referral: Code [place] Alert asbestos removal worker responded to Stroke Alert code and found patient's 9 year old daughter, Majo sitting along the wall on a chair. Roll Builder stayed with Majo and talked with her to keep her company and to help with any fear or anxiety. Majo stated she has 5 brothers and 3 sisters however none of them live with patient and patient's mother. Roll Builder let Majo pick out some stress toys and coloring activities from social work basked as Majo stated she lives to color. asbestos removal worker stayed with her until patient arrived back in the room and at that point, patient denied any other support was needed at that time and that everything was ok. (end time: 12:24) asbestos removal worker checked back in to make sure everything was still ok with patient and patient's daughter which both continued to deny any current needs. (end time 12:50) Eva Knutson, WHIZZER, ELEMENTARY SCHOOL LIBRARIAN
[2024-11-17 12:59] LABS: Bedside Glucose 88 mg/dL (74-106)
--- NOTE | 2024-11-17 13:02 | RAD_ITS ---
PROCEDURE: CHEST 1 VIEW 11/17/2024 REASON FOR EXAM: NEURO DEFICIT, ACUTE, STROKE SUSPECTED TECHNIQUE: Frontal view of the chest. COMPARISON: AP chest 10/18/2022 FINDINGS: Lungs appear clear. No pleural effusion or pneumothorax is noted. The cardiomediastinal silhouette is within the normal range. No acute osseous process is seen. RAD/Chest 1 View IMPRESSION: No evidence of acute cardiopulmonary disease. Reading Location: [id number]
[2024-11-17 13:16] LABS: Troponin T High Sensitivity < 6 ng/L (<=14)
--- NOTE | 2024-11-17 13:24 | EX.ED.DYSGE1 ---
HPI History of Present Illness Chief Complaint: General Illness Narrative Narrative: Patient is a 44-year-old female with past medical history of anemia, hypertension, DIC who presents to the emergency department chief complaint of right-sided facial numbness, vision tilted to the right, right arm numbness and tingling and not feeling right. States that she went to bed around 1 AM and before going to bed she felt well however around 8 AM when she woke up she noted that she developed the symptoms. She was concerned and came here for the valuation management. She states that she has not a water pill for her blood pressure. She feels like her legs are more swollen. She states that currently she does not have a doctor she just moved here. [facility] Medical History Hypertension delivery delivered DIC (disseminated intravascular coagulation) Anemia Home Medications ?Medication ?Instructions ?Recorded ?Last Taken ?Type hydrochlorothiazide 25 mg tablet 25 mg PO DAILY WATER PILL 06/19/21 11/16/24 History diclofenac sodium 50 mg 50 mg PO BID PRN inflammation 11/17/24 11/16/24 History tablet,delayed release Allergy/AdvReac Type Severity Reaction Status Date / Time No Known Allergies Allergy Verified 11/17/24 11:45 Surgical History Hx of appendectomy History of cholecystectomy H/O: hysterectomy Social History Smoking Status: Current every day smoker tobacco type: e-cigarettes ROS ROS ED ROS Narrative Constitutional: Complains of headache as noted above denies lightheadedness or dizziness Eyes: Complains of changes vision as noted above Cardiovascular: Denies chest pain or palpitations Respiratory: Denies coughing wheezing shortness of breath Abdomen: Denies abdominal pain nausea vomit diarrhea : Denies urinary symptoms Neurological: Complains of numbness and tingling as noted above Musculoskeletal: Denies back pain Skin: Denies rashes or lesions EXAM Physical Exam Narrative Exam Narrative: General: Patient is lying in bed rest comfortably did not appear to be in acute distress Head: Atraumatic, normocephalic Eyes: PERRL bilaterally, EOMI bilaterally, no conjunctival injection noted Neck: Soft, supple, trachea midline Cardiovascular: Regular rate and rhythm no murmurs gallops rubs noted Respiratory: Clear to auscultation bilaterally no rales rhonchi or wheezes noted Abdomen: Soft, nondistended, nontender to palpation Extremities: +5/5 strength noted in the bilateral upper and lower extremities, radial pulses +2/4 in the bilateral extremities, no pedal edema on exam Neurological: Patient following commands knew that she was at [facility] year is 2024. NIH is 1 GCS 15 Skin: Warm, dry, intact no rashes or lesions noted Const Vital Signs: 11/17/24 11:45 11/17/24 11:54 11/17/24 12:21 Temperature 97 F L Temperature Source Temporal Pulse Rate 104 H 85 Respiratory Rate 15 10 L Respiratory Pattern Normal Blood Pressure 145/110 H 145/96 H Blood Pressure Mean 121 112 Pulse Ox 99 95 Oxygen Delivery Method Room Air Room Air 11/17/24 12:37 11/17/24 12:42 11/17/24 13:12 Temperature Temperature Source Pulse Rate 87 75 Respiratory Rate 18 15 Respiratory Pattern Blood Pressure 135/79 H 136/87 H Blood Pressure Mean 97 103 Pulse Ox 95 95 Oxygen Delivery Method Room Air 11/17/24 13:30 11/17/24 13:44 Temperature Temperature Source Pulse Rate 78 75 Respiratory Rate 14 14 Respiratory Pattern Blood Pressure 111/75 111/75 Blood Pressure Mean 87 87 Pulse Ox 96 96 Oxygen Delivery Method Room Air MDM MDM MDM Narrative Medical decision making narrative: Patient is a 44-year-old female who presented to the emergency department the chief complaint of right arm numbness tingling, right facial tingling and numbness as well as changes in vision. Her last known well was 1 AM and woke up around 8 AM having the symptoms. She is not a tenecteplase candidate as her presentation was more than 4 and half hours ago. On the differential diagnose includes but not limited to complex migraine, intracranial hemorrhage, large vessel occlusion. Once workup is obtained reviewed she will be reevaluated. Patient CBC reviewed showed no evidence leukocytosis white blood count normal 9.1, hemoglobin 13.1, plate count of 371. Patient INR 1.1, PT 13.9. Patient odium normal 135, potassium normal at 4, creatinine normal 0.85. Patient troponin was less than 6. Patient's EKG reviewed showed sinus rhythm with a rate of 82 bpm IA interval is 162. Patient's proBNP less than 36. Patient's chest x-ray reviewed by myself and by radiology showed no acute cardiopulmonary processes. Patient CT head and brain contrast showed no acute intracranial hemorrhage or other acute processes seen at this time. Patient CTA head and neck was reviewed and showed no area of stenosis or obstruction no aneurysm is identified. I discussed with [facility] teleneurology Dr. Arambula And they are recommending giving aspirin which was ordered and admission for further workup. Will discuss the case with hospitalist. Discussed case with hospitalist Dr. Lord who accept patient for admission. Patient notified is agreeable this plan. States that her vision is improving as her headache is getting better. Patient be given a gram of Tylenol as well. Lab Data Labs: Laboratory Results - last 24 hr 11/17/24 11/17/24 11/17/24 12:02 12:29 12:39 WBC 9.1 RBC 4.60 Hgb 13.1 Hct 38.8 MCV 84.3 MCH 28.5 MCHC 33.8 RDW Std Deviation 36.7 RDW Coeff of Sammi 12.2 Plt Count 371 MPV 9.8 Immature Gran % (Auto) 0.300 Neut % (Auto) 63.6 Lymph % (Auto) 26.1 [place] % (Auto) 7.4 Eos % (Auto) 1.7 Baso % (Auto) 0.9 Absolute Neuts (auto) 5.8 Absolute Lymphs (auto) 2.36 Nucleated RBC % 0 PT 13.9 INR 1.1 APTT 30.0 Sodium 135 Potassium 4.0 Chloride 99 Carbon Dioxide 22.0 Anion Gap 14 BUN 15 Creatinine 0.85 Estim Creat Clear Calc 114.81 Est GFR (MDRD) Non-Af 88 BUN/Creatinine Ratio 17.6 Glucose 96 Calcium 9.2 Troponin T High Sens < 6 NT pro BNP II < 36 POC Glucose 88 Radiography Diagnostic Testing: Clinical Impression(s) from Imaging Studies Brain CT 11/17/24 12:12 IMPRESSION: No intracranial hemorrhage or other acute process is seen at this time. Follow up imaging if and as clinically appropriate. [place] Alert: No intracranial hemorrhage is seen on this stroke alert. This critical information above was relayed directly by me by telephone to Sukhwinder Mensah on 11/17/2024 at 11:42 am with readback verification. Reading Location: [address] Head/Neck CTA 11/17/24 12:12 IMPRESSION: No area of stenosis or obstruction is seen. No aneurysm is identified. Reading Location: [address] Chest X-Ray 11/17/24 13:02 IMPRESSION: No evidence of acute cardiopulmonary disease. Reading Location: [address] Discharge Plan Triage Chief Complaint: General Illness Other Complaint: Upper Extremity Injury ED Provider: Sukhwinder Mensah Dx/Rx/DC Orders Clinical Impression: Headache, Alteration in vision, Facial numbness, Right arm numbness Prescriptions: No Action hydrochlorothiazide 25 mg tablet 25 mg PO DAILY diclofenac sodium 50 mg tablet,delayed release (DR/EC) 50 mg PO BID PRN (Reason: inflammation) Primary Care Provider: Care Physician,No Primary Referrals: Care Physician,No Primary [Primary Care Provider] - Print Language: Chinese Disposition Disposition: Acute Care Hospital [facility]
[2024-11-17 13:28] LABS: Anion Gap 14 (5-15); BUN 15 mg/dL (4-19); BUN/Creat Ratio 17.6 RATIO (10-20); Calcium,Total 9.2 mg/dL (7.6-11.0); Chloride 99 mmol/L (98-108); Creatinine, Serum 0.85 mg/dL (0.70-1.20); EST Glomerular Filtration Rate 88 (>60); Estimated Creatinine Clearance 114.81 ml/min (50-250); Glucose 96 mg/dL (70-99); Sodium Level 135 mmol/L (133-145)
[2024-11-17] MEDS: Ketorolac 15 MG/ML Vial IV (13:38)
[2024-11-17 13:52] LABS: Pro- Brain NATRIURETIC PEPTIDE < 36 pg/mL (<=450)
--- NOTE | 2024-11-17 14:35 | PCM.HP.STD ---
HPI - General General Date of Admission: 11/17/24 Date of Service: 11/17/24 Chief Complaint: Right-sided numbness and tingling and vision changes HPI Narrative DUY DARLING, is a 44 F who presented to [facility] ED on 11/17/2024 with right-sided numbness and tingling and vision changes. Patient has no prior history of stroke. She went to bed around 1 AM and felt fine then, but upon awakening this morning around 8 AM she had symptoms. She had right-sided facial numbness, right arm numbness and tingling, vision issues and headache. Because of this, she came to the ED for further evaluation. CT brain and CTA head/neck were unremarkable. Chest x-ray unremarkable. CBC and BMP unremarkable. She was mildly hypertensive to the 140s over 100s and mildly tachycardic but both of these improved with treatment for her headache. She was evaluated by teleneurology who noted possible complex migraine versus stroke, so she was given aspirin 325 mg and hospitalist was contacted for admission. I saw the patient at bedside in the ED. Patient was sitting back in bed, mildly anxious appearing and flushed appearing in the face but was otherwise answering questions appropriately for me. She noted that her symptoms were moderately improved since arrival to the ED. She states to me that she has had some right-sided facial numbness/tingling and jaw pain over the past few weeks. However, she had no right arm or leg numbness or tingling until this morning. She has also had intermittent headache over the past few weeks and her headache this morning is only slightly worse. She vapes daily but denies any drug use and only occasionally uses alcohol she reports. She has history of hypertension and is on hydrochlorothiazide for this but has no other significant medical history. She otherwise denies any pain or discomfort. No other acute concerns at this time. [facility] Medical History Hypertension delivery delivered DIC (disseminated intravascular coagulation) Anemia Home Medications ?Medication ?Instructions ?Recorded ?Last Taken ?Type hydrochlorothiazide 25 mg tablet 25 mg PO DAILY WATER PILL 06/19/21 11/16/24 History diclofenac sodium 50 mg 50 mg PO BID PRN inflammation 11/17/24 11/16/24 History tablet,delayed release Allergy/AdvReac Type Severity Reaction Status Date / Time No Known Allergies Allergy Verified 11/17/24 11:45 Surgical History (Reviewed 11/17/24 @ 13: by Dr. Sukhwidner Mensah DO) Hx of appendectomy History of cholecystectomy H/O: hysterectomy Social History Smoking Status: Current every day smoker tobacco type: e-cigarettes ROS Constitutional Constitutional: Denies chills, fatigue, fever(s) or weakness Eyes Eyes: Reports blurry vision and change in vision; Denies discharge from eye(s), double vision, erythema, eye pain or loss of vision ENT HEENT: Denies nasal congestion, nasal discharge, sinus pressure or sore throat Cardiovascular Cardiovascular: Denies chest pain Respiratory/Chest Respiratory/Chest: Denies cough or shortness of breath at rest Gastrointestinal Gastrointestinal: Denies abdominal pain Genitourinary Genitourinary: Denies dysuria Musculoskeletal Musculoskeletal: Denies arthralgias or myalgias Neurologic Neurologic: Reports headache(s), numbness and tingling; Denies abnormal speech, confusion, dizziness, focal weakness or paresthesias Psychiatric Psychiatric: Reports anxiety; Denies depression Vital Signs Vital Signs Vital Signs: 11/17/24 11:45 11/17/24 11:54 11/17/24 12:21 Temperature 97 F L Temperature Source Temporal Pulse Rate 104 H 85 Respiratory Rate 15 10 L Respiratory Pattern Normal Blood Pressure 145/110 H 145/96 H Blood Pressure Mean 121 112 Pulse Ox 99 95 Oxygen Delivery Method Room Air Room Air 11/17/24 12:37 11/17/24 12:42 11/17/24 13:12 Temperature Temperature Source Pulse Rate 87 75 Respiratory Rate 18 15 Respiratory Pattern Blood Pressure 135/79 H 136/87 H Blood Pressure Mean 97 103 Pulse Ox 95 95 Oxygen Delivery Method Room Air 11/17/24 13:30 11/17/24 13:44 Temperature Temperature Source Pulse Rate 78 75 Respiratory Rate 14 14 Respiratory Pattern Blood Pressure 111/75 111/75 Blood Pressure Mean 87 87 Pulse Ox 96 96 Oxygen Delivery Method Room Air Weight Weight: 128.82 kg Body Mass Index (BMI) 48.7 Physical Exam Const alert, oriented x3 and no apparent distress Constitutional Narrative: Middle-age female, class III obesity, flushed appearing in the face with facial acne noted, mildly anxious appearing but otherwise sitting back comfortably in bed and answering questions appropriately for me. General Appearance: cooperative and comfortable HEENT normocephalic, head/scalp atraumatic, hearing grossly normal bilaterally, nasal mucous membranes and turbinates normal and moist oral mucous membranes Eyes PERRL, EOMs intact bilaterally and conjunctivae normal Neck full ROM Chest inspection of chest normal Resp normal respiratory effort, normal air movement, no use of accessory muscles and clear to auscultation bilaterally Cardio regular rate, regular rhythm, no murmurs and peripheral pulses 2+ throughout GI normal to inspection, nondistended, normoactive bowel sounds, soft to palpation, non-tender and non-distended Back/Spine normal ROM Extremity normal to inspection, full ROM and no pedal edema Skin no rashes or lesions noted Neuro oriented x3, CN's II-XII intact bilaterally, moves all extremities and no focal motor deficits Speech: speech normal Motor Exam: strength 5/5 throughout Psych mental status grossly normal Mood & Affect: anxious Results Lab / Micro Data 11/17/24 12:02 11/17/24 12:02 Labs: Laboratory Results - last 24 hr 11/17/24 12:02: WBC 9.1, RBC 4.60, Hgb 13.1, Hct 38.8, MCV 84.3, MCH 28.5, MCHC 33.8, RDW Std Deviation 36.7, RDW Coeff of Sammi 12.2, Plt Count 371, MPV 9.8, Immature Gran % (Auto) 0.300, Neut % (Auto) 63.6, Lymph % (Auto) 26.1, [place] % (Auto) 7.4, Eos % (Auto) 1.7, Baso % (Auto) 0.9, Absolute Neuts (auto) 5.8, Absolute Lymphs (auto) 2.36, Nucleated RBC % 0, Sodium 135, Potassium 4.0, Chloride 99, Carbon Dioxide 22.0, Anion Gap 14, BUN 15, Creatinine 0.85, Estim Creat Clear Calc 114.81, Est GFR (MDRD) Non-Af 88, BUN/Creatinine Ratio 17.6, Glucose 96, Calcium 9.2, Troponin T High Sens < 6, NT pro BNP II < 36 11/17/24 12:29: PT 13.9, INR 1.1, APTT 30.0 11/17/24 12:39: POC Glucose 88 Imaging Radiology Impression Brain CT 11/17/24 12:12 IMPRESSION: No intracranial hemorrhage or other acute process is seen at this time. Follow up imaging if and as clinically appropriate. [place] Alert: No intracranial hemorrhage is seen on this stroke alert. This critical information above was relayed directly by me by telephone to Sukhwinder Mensah on 11/17/2024 at 11:42 am with readback verification. Reading Location: [address] Head/Neck CTA 11/17/24 12:12 IMPRESSION: No area of stenosis or obstruction is seen. No aneurysm is identified. Reading Location: [address] Chest X-Ray 11/17/24 13:02 IMPRESSION: No evidence of acute cardiopulmonary disease. Reading Location: [address] Assessment & Plan Assessment/Plan (1) Stroke-like symptoms: PLAN: Plan Patient is a 44-year-old female who presented to [facility] ED on 11/17/2024 with strokelike symptoms. 1. Strokelike symptoms ? Admit under observation status to PCU. Neurology consulted. Presented with symptoms of right sided face, arm and leg numbness and tingling along with vision changes and headache. May be more consistent with complex migraine but cannot rule out stroke. CT brain and CTA head/neck unremarkable. Orders placed per stroke protocol order set. MRI brain and echo with bubble study ordered. Lipid panel, A1c and TSH ordered. Will treat with baby aspirin and high intensity statin for now. 2. Hypertension ? Hold home hydrochlorothiazide for permissive hypertension. 3. Class III obesity ? BMI 48 on admit. Encouraged lifestyle modifications. Complicates hospital course, care and prognosis. 4. Tobacco use ? Vapes on a daily basis. Denied need for nicotine replacement therapy. Discussed cessation. DVT prophylaxis: SCDs CODE STATUS: Full code, verified Expected disposition: Home, 1 to 2 days Total clinical time spent by myself addressing the patient's medical issues, reviewing all the data, and collaborating with patient's care team: 55 minutes. Charges/Coding Visit Charges Inpatient E&M: 30173 Init Hosp L2
[2024-11-17 14:39] LABS: Troponin T High Sens 2 HR < 6 ng/L (<=14)
--- NOTE | 2024-11-17 14:39 | ECHOD_ITS ---
Reason For Study Reason For Study: TIA/STROKE Procedure This was a 2D Doppler, Color Flow transthoracic echocardiogram. Exam performed portable in patient room. Left Ventricle Normal LV size. Left ventricular systolic function is normal. The left ventricular ejection fraction is 60 %. No regional wall motion abnormalities noted. Right Ventricle Normal RV size. Normal systolic function. Atria Normal left atrium. Normal right atrium. Bubble contrast study is negative for PFO/ASD. Mitral Valve Normal mitral valve. Tricuspid Valve Normal tricuspid valve. Aortic Valve Normal aortic valve. Trisinus/trileaflet aortic valve. Pulmonic Valve Normal pulmonic valve. Great Vessels Normal aortic root. The pulmonary artery is normal size. Inferior vena cava collapse with respiration. Pericardium/Pleural No pericardial effusion. Medication Performed a rapid injection of agitated mix of 9 cc saline and 1cc air to assess for atrial septal defect. MMode/2D Measurements & Calculations LVIDd: 4.3 cm IVSd: 1.0 cm LVOT diam: 2.0 cm LVIDs: 2.9 cm LVPWd: 1.5 cm FS: 32.3 % LVOT area: 3.2 cm2 Ao root diam: 3.2 cm LAV(MOD-bp): 49.6 ml LVAd ap4: 30.7 cm2 LAV(MOD-bp) Indexed: 21.8 ml/m2 LVLd ap4: 8.3 cm LAV(MOD-sp2): 48.6 ml EDV(MOD-sp4): 97.2 ml LAV(MOD-sp4): 51.7 ml EDV(sp4-el): 95.7 ml LVAs ap4: 17.1 cm2 LVLs ap4: 6.3 cm ESV(MOD-sp4): 40.0 ml ESV(sp4-el): 39.2 ml EF(MOD-sp4): 58.9 % EF(sp4-el): 59.0 % SV(MOD-sp4): 57.2 ml SV(sp4-el): 56.5 ml LA A4 area: 18.1 cm2 SI(MOD-sp4): 25.1 ml/m2 LA dimension(2D): 4.3 cm RA A4 area: 11.9 cm2 Time Measurements MV dec time: 0.23 sec Doppler Measurements & Calculations MV E max genaro: 75.7 cm/sec Lat Peak E' Genaro: 12.8 cm/sec Med Peak E' Genaro: 12.4 cm/sec MV A max genaro: 62.1 cm/sec E/E' lat: 5.9 E/E' med: 6.1 MV E/A: 1.2 MV V2 max: 81.5 cm/sec MV dec slope: 341.5 cm/sec2 Ao V2 max: 118.9 cm/sec MV max P.7 mmHg Ao max P.7 mmHg MV V2 mean: 53.3 cm/sec Ao V2 mean: 85.7 cm/sec MV mean P.3 mmHg Ao mean P.3 mmHg MV V2 VTI: 25.6 cm Ao V2 VTI: 27.3 cm MVA(VTI): 3.1 cm2 AV (velocity ratio): 0.93 DELISA(I,D): 2.9 cm2 DELISA(V,D): 2.9 cm2 LV V1 max: 108.6 cm/sec SV(LVOT): 80.4 ml PA V2 max: 99.9 cm/sec LV V1 max P.7 mmHg PA V2 mean: 74.3 cm/sec LV V1 mean P.9 mmHg LV V1 mean: 79.7 cm/sec LV V1 VTI: 25.4 cm ECHO/Echo Complete Interpretation Summary Bubble contrast study is negative for PFO/ASD. Normal LV size. Left ventricular systolic function is normal. The left ventricular ejection fraction is 60 %. Structurally normal valves. Ordering Physician: Kavon Lord Referring Physician: ERICKSON PCP Performed By: Latrice Pate RCS
[2024-11-17] MEDS: Metoclopramide 10 MG/2 ML Vial IV (14:47)
[2024-11-17] MEDS: Acetaminophen 500 MG Tablet 1000 MG PO (14:47)
[2024-11-17 15:29] LABS: Hemoglobin A1c 5.5 % (<=5.6)
[2024-11-17 16:52] LABS: Troponin T High Sens 4 HR 15 ng/L (<=14)
[2024-11-17] MEDS: Atorvastatin Calcium 80 MG Tablet PO (21:48)
[2024-11-18] VITALS (7 sets, daily range): BP systolic 114–138; BP diastolic 73–84; PULSE 67–80; RESP 4–16; TEMP 36.6–37; O2SAT 92–98; BMI 49.1
--- NOTE | 2024-11-18 01:45 | CPS ---
patient on nursing pulse ox, pulmonary has non available at this time. rn notified
[2024-11-18 05:54] LABS: Hematocrit 35.7 % (37-47); Hemoglobin 11.8 g/dL (12.0-15.0); Mean Corp Hgb Conc 33.1 g/dL (32-36); Mean Corpuscular Hgb 28.2 pg (27.0-32.0); Mean Corpuscular Volume 85.4 fL (81-99); Mean Platelet Vol. 9.8 fl (6.2-12.0); Platelet Count 320 K/mm3 (150-450); RBC Distribution Width CV 12.2 % (11.6-14.6); RBC Distribution Width SD 38.3 fl (35.1-43.9); Red Blood Count 4.18 M/mm3 (4.2-5.4); White Blood Count 7.1 K/mm3 (4.4-11.0)
[2024-11-18 06:31] LABS: Anion Gap 12 (5-15); BUN 14 mg/dL (4-19); BUN/Creat Ratio 18.2 RATIO (10-20); Calcium,Total 8.7 mg/dL (7.6-11.0); Carbon Dioxide 22.8 mmol/L (21.0-32.0); Chloride 103 mmol/L (98-108); Creatinine, Serum 0.78 mg/dL (0.70-1.20); EST Glomerular Filtration Rate 97 (>60); Estimated Creatinine Clearance 125.75 ml/min (50-250); Glucose 112 mg/dL (70-99); Potassium 3.6 mmol/L (3.3-5.1); Sodium Level 138 mmol/L (133-145)
[2024-11-18 07:00] LABS: Cholesterol 149 mg/dL (<=200); High Density Lipoprotein 43 mg/dL; Low Density Lipoprotein Calc. 81 mg/dL; Triglycerides 129 mg/dL; Very Low Density Lipoprotein 26 mg/dL (5-40); cholesterol:hdl ratio screen 3.49
[2024-11-18] MEDS: Aspirin 81 MG TAB.CHEW PO (07:53)
[2024-11-18] MEDS: Acetaminophen 325 MG Tablet 650 MG PO (07:58)
--- NOTE | 2024-11-18 08:47 | PCM.PN.HOSP ---
Reason for Visit Reason for Visit: Diagnoses Unspecified symptoms and signs involving the nervous system (11/17/24) Subjective Subjective Headache resolved. Right sided paresthesias resolved, though complaining of right arm pain. Objective Data Objective Data Vital Signs: Vital Signs Temp Pulse Resp BP Pulse Ox O2 Del Method 36.6 C 69 16 138/83 H 95 Room Air 11/18/24 07:15 11/18/24 07:15 11/18/24 07:15 11/18/24 07:15 11/18/24 07:15 11/18/24 08:23 Oxygen Delivery Method Room Air Weight: 129.9 kg Body Mass Index (BMI) 49.1 Intake & Output: Intake and Output for Last 24 Hours 11/16/24 11/17/24 11/18/24 23:59 23:59 23:59 Intake Total 1600 / 1600 Balance 1600 / 1600 Lab / Micro Data 11/18/24 05:25 11/18/24 05:25 Labs: Laboratory Results - last 24 hr 11/17/24 12:01: Hemoglobin A1c 5.5 L, TSH 2.130 11/17/24 12:02: WBC 9.1, RBC 4.60, Hgb 13.1, Hct 38.8, MCV 84.3, MCH 28.5, MCHC 33.8, RDW Std Deviation 36.7, RDW Coeff of Sammi 12.2, Plt Count 371, MPV 9.8, Immature Gran % (Auto) 0.300, Neut % (Auto) 63.6, Lymph % (Auto) 26.1, [place] % (Auto) 7.4, Eos % (Auto) 1.7, Baso % (Auto) 0.9, Absolute Neuts (auto) 5.8, Absolute Lymphs (auto) 2.36, Nucleated RBC % 0, Sodium 135, Potassium 4.0, Chloride 99, Carbon Dioxide 22.0, Anion Gap 14, BUN 15, Creatinine 0.85, Estim Creat Clear Calc 114.81, Est GFR (MDRD) Non-Af 88, BUN/Creatinine Ratio 17.6, Glucose 96, Calcium 9.2, Troponin T High Sens < 6, NT pro BNP II < 36 11/17/24 12:29: PT 13.9, INR 1.1, APTT 30.0 11/17/24 12:39: POC Glucose 88 11/17/24 14:15: Troponin T Hi Sens 2 Hr < 6 11/17/24 16:12: Troponin T Hi Sens 4Hr 15 H 11/18/24 05:25: WBC 7.1, RBC 4.18 L, Hgb 11.8 L, Hct 35.7 L, MCV 85.4, MCH 28.2, MCHC 33.1, RDW Std Deviation 38.3, RDW Coeff of Sammi 12.2, Plt Count 320, MPV 9.8, Sodium 138, Potassium 3.6, Chloride 103, Carbon Dioxide 22.8, Anion Gap 12, BUN 14, Creatinine 0.78, Estim Creat Clear Calc 125.75, Est GFR (MDRD) Non-Af 97, BUN/Creatinine Ratio 18.2, Glucose 112 H, Calcium 8.7, Triglycerides 129, Cholesterol 149, LDL Cholesterol, Calc 81, VLDL Cholesterol 26, HDL Cholesterol 43, Cholesterol/HDL Ratio 3.49 Radiography Diagnostic Testing: Radiology Impression Brain CT 11/17/24 12:12 IMPRESSION: No intracranial hemorrhage or other acute process is seen at this time. Follow up imaging if and as clinically appropriate. [place] Alert: No intracranial hemorrhage is seen on this stroke alert. This critical information above was relayed directly by me by telephone to Sukhwinder Mensah on 11/17/2024 at 11:42 am with readback verification. Reading Location: [address] Head/Neck CTA 11/17/24 12:12 IMPRESSION: No area of stenosis or obstruction is seen. No aneurysm is identified. Reading Location: [address] Chest X-Ray 11/17/24 13:02 IMPRESSION: No evidence of acute cardiopulmonary disease. Reading Location: [address] Physical Exam Const alert and no apparent distress HEENT head/scalp atraumatic and moist oral mucous membranes HEENT Narrative: facial tattoos. Eyes PERRL and EOMs intact bilaterally Eyes Narrative: no icterus. Resp normal respiratory effort and no retractions Extremity normal to inspection and full ROM Extremity Narrative: normal radial and ulnar pulses. Neuro moves all extremities, no focal motor deficits and no sensory deficits noted Sensorium / Orientation: awake and alert Speech: speech normal Assessment & Plan Assessment/Plan (1) Migraine: PLAN: with right sided paresthesias. since resolved. MRI negative. Had been taking acetaminophen, but with little relief. May take ibuprofen PRN. If persists, could have triptans PRN. PLAN: Plan Chronic conditions: Hypertension? Class III obesity? BMI 48 on admit. Encouraged lifestyle modifications. Complicates hospital course, care and prognosis. Nicotine abuse? Vapes on a daily basis. Denied need for nicotine replacement therapy. Discussed cessation. DVT prophylaxis: SCDs DC home.
--- NOTE | 2024-11-18 09:00 | MRI_ITS ---
PROCEDURE: BRAIN WITHOUT CONTRAST 11/18/2024 REASON FOR EXAM: CVA RULE OUT TECHNIQUE: Multiplanar, multisequence MRI of the brain without intravenous gadolinium-based contrast. COMPARISON: 11/17/2024 FINDINGS: No evidence of acute ischemia or mass lesion.No intracranial hemorrhage. The ventricles and sulci are normal in appearance.No extra-axial collection or midline shift. The posterior fossa structures are within normal limits. The orbits and paranasal sinuses are unremarkable.The calvarium and soft tissues are unremarkable. MRI/Brain without Contrast IMPRESSION: 1. Normal MRI of the brain. [facility]
--- NOTE | 2024-11-18 14:41 | PCM.DC.SUM ---
Providers Date of Admission: 11/17/24 Primary Care Physician: Vivienne Primary Care Phys Consultations 11/17/24 15:19 Consult: Tele-Neurology Routine Consulting Provider: [facility] Reason for Consult: Acute Ischemic Stroke/TIA EMERGENT Consult: No MD Notified: Yes Date Notified: 11/17/24 Time Notified: 20:51 Method of Notification: Answering Service Nursing Unit Staff Notify [facility] of Tele-Neurology Consult: Yes Reason For Visit: [place] Diagnosis Discharge Diagnosis (1) Migraine: Status: Acute Code(s): G43.909 - Migraine, unspecified, not intractable, without status migrainosus Plan: with right sided paresthesias. since resolved. MRI negative. Had been taking acetaminophen, but with little relief. May take ibuprofen PRN. If persists, could have triptans PRN. Plan Chronic conditions: Hypertension? Class III obesity? BMI 48 on admit. Encouraged lifestyle modifications. Complicates hospital course, care and prognosis. Nicotine abuse? Vapes on a daily basis. Denied need for nicotine replacement therapy. Discussed cessation. DVT prophylaxis: SCDs DC home. Medications at Discharge Home Medications hydrochlorothiazide 25 mg tablet 25 mg PO DAILY WATER PILL 06/19/21 acetaminophen 325 mg tablet 1,000 mg (3.0769 x 325 mg) PO Q8H PRN PRN Pain 1-10 Or Fever>100.7 #0 tabs 11/18/24 ibuprofen 200 mg tablet 800 mg (4 x 200 mg) PO Q8H PRN pain #10 tabs 11/18/24 sumatriptan succinate 50 mg tablet (Imitrex) See Rx Instructions PO .COMPLEX #10 tabs 11/18/24 Hospital Course Operations None Procedures None Summary of Care Provided Minutes Spent on Discharge: 32 Weight / BMI Weight Weight: 129.9 kg Body Mass Index (BMI) 49.1 ABG / Lab / Microbiology Data 11/18/24 05:25 11/18/24 05:25 Laboratory: Laboratory Results - last 24 hr 11/17/24 12:01: Hemoglobin A1c 5.5 L, TSH 2.130 11/17/24 16:12: Troponin T Hi Sens 4Hr 15 H 11/18/24 05:25: WBC 7.1, RBC 4.18 L, Hgb 11.8 L, Hct 35.7 L, MCV 85.4, MCH 28.2, MCHC 33.1, RDW Std Deviation 38.3, RDW Coeff of Sammi 12.2, Plt Count 320, MPV 9.8, Sodium 138, Potassium 3.6, Chloride 103, Carbon Dioxide 22.8, Anion Gap 12, BUN 14, Creatinine 0.78, Estim Creat Clear Calc 125.75, Est GFR (MDRD) Non-Af 97, BUN/Creatinine Ratio 18.2, Glucose 112 H, Calcium 8.7, Triglycerides 129, Cholesterol 149, LDL Cholesterol, Calc 81, VLDL Cholesterol 26, HDL Cholesterol 43, Cholesterol/HDL Ratio 3.49 Radiography Diagnostic Testing: Radiology Impression Echocardiogram 11/17/24 14:39 Interpretation Summary Bubble contrast study is negative for PFO/ASD. Normal LV size. Left ventricular systolic function is normal. The left ventricular ejection fraction is 60 %. Structurally normal valves. Ordering Physician: Kavon Lord Referring Physician: VIVIENNE PCP Performed By: Latrice Pate RCS Brain MRI 11/18/24 09:00 IMPRESSION: 1. Normal MRI of the brain. Reading Location: [facility] Instructions Discharge Diet: No restrictions DC O2, CPAP, BIPAP Needs Home O2 Discharge instructions: No Meaningful Use Info Meaningful Use Meaningful Use Diagnoses (Choose all that apply): None applicable Ischemic Stroke Statin Dosing Therapy Reference: STATIN DOSE THERAPY REFERENCE: * Patients > 75 years receive moderate or high dose statin therapy. * Patients 75 years or YOUNGER should receive HIGH intensity statin dose unless contraindicated. You will be required to document reason for non-treatment if statin daily dose does not meet guidelines. HIGH DOSE STATIN THERAPY DAILY Atorvastatin > than or = to 40 mg Rosuvastatin > than or = to 20 mg Amlodipine + Atorvastatin > than or = to 2.5/40 mg Ezetimibe + Simvastatin 10/80 mg Simvastatin 80mg Discharge Plan Admission Admit Date/Time: 11/17/24 14:35 Primary Reason for Your Visit: Complex migraine. Attending Provider: Isaac Veliz Primary Care Provider: Care Physician,No Primary Consulting Providers: Jonah Tovar; Denny Mcpherson; Sona Barriga; Lisbeth Amaya; Hortensia Carrasco; Jorge Hauser; Amy Obrien; Dereck Pisano; Brien Burton; Real Arambula; Deepika Montgomery; Adrien Lu; Anne Marie Jang; Ivania Carter; Prakash Hewitt; Jose Mendez; Jarrod Fraire; Jc Orantes; Mira Rodriguez; Doretha Noriega; Kavon Lord Instructions Additional Instructions / Restrictions: You had right sided numbness likely due to an atypical migraine. Your brain MRI was negative for a stroke. If you have recurrent headaches, you may take acetaminophen (Tylenol) 1000mg 3 times per day as needed. If that does not help, take ibuprofen 800mg 3-times as needed; and if that does not help you can take an Imitrex and repeat in 2 hours if not resolved. Follow up with a primary care physician in 2-4 weeks. Discharge Orders/Prescriptions Prescriptions: New acetaminophen 325 mg Tablet 1,000 mg PO Q8H PRN PRN (Reason: Pain 1-10 Or Fever>100.7) Qty: 0 0RF ibuprofen 200 mg tablet 800 mg PO Q8H PRN (Reason: pain) Qty: 10 0RF sumatriptan succinate [Imitrex] 50 mg tablet See Rx Instructions .ROUTE .COMPLEX Qty: 10 0RF Rx Instructions: take 1 tab at onset of headache; if no relief may repeat 1 tab after at least 2 hrs; max = 4 tabs/24 hr Continued hydrochlorothiazide 25 mg tablet 25 mg PO DAILY Discontinued diclofenac sodium 50 mg tablet,delayed release (DR/EC) 50 mg PO BID PRN (Reason: inflammation) Referrals / Follow Up: Care Physician,No Primary [Primary Care Provider] - Disposition Disposition (needs filled in before D/C Order can be placed): Home, Self Care Charges/Coding Visit Charges Inpatient E&M: 75408 Disch Hosp >30min
--- NOTE | 2024-11-18 15:14 | CASEMGMT ---
SW did not complete a PHQ 9 as patient did not have a stroke or TIA. Chanel SNEED
--- NOTE | 2024-11-18 15:18 | CASEMGMT ---
Patient has order for discharge. RN CM in to discuss needs at discharge. Patient denies needs or help at discharge. Patient has no further questions or concerns.
--- NOTE | 2024-11-18 15:35 | PHA.DC.MC.R ---
Pharmacy [facility] Service has performed discharge medication reconciliation and counseling for this patient. 1. SUMATRIPTAN 50MG PO X1 PRN HEADACHE, MAY REPEAT X1 IF INEFFECTIVE The patient's discharge medication list was reviewed for discrepancies and discrepancies were resolved. The patient was counseled on the following discharge medications and changes in medications for homegoing were reviewed. The Reason for Use, instructions for use, and potential side effects were reviewed for all new medications. The patient's questions regarding all of their medications were answered. The patient was able to verbally demonstrate an understanding of their discharge medications. Medications at Discharge Home Medications hydrochlorothiazide 25 mg tablet 25 mg PO DAILY WATER PILL 06/19/21 acetaminophen 325 mg tablet 1,000 mg (3.0769 x 325 mg) PO Q8H PRN PRN Pain 1-10 Or Fever>100.7 #0 tabs 11/18/24 ibuprofen 200 mg tablet 800 mg (4 x 200 mg) PO Q8H PRN pain #10 tabs 11/18/24 sumatriptan succinate 50 mg tablet (Imitrex) See Rx Instructions PO .COMPLEX #10 tabs 11/18/24
--- NOTE | 2024-11-18 16:12 | NEURO.CONS ---
Assessment and Plan: Neuro Assessment/Plan 44 yo woman presenting with headache associated with distorted vision and R arm tingling/numbness which have resolved gradually over few hours except for persistent headache. MRI with no evidence of acute stroke. Presentation consistent with complex migraine Patient reports chronic daily headaches Also reports daily Tylenol use Part of her history could be concerning for history of IIH (positional chronic headaches worse with laying down, ringing in the ears, some transient vision changes, obesity), however her presentation today is more consistent with complex migraine, but would recommend follow up in headache and ophthalmology clinic for further evaluation. I considered starting her on Topamax or Zonisamide for migraine prevention given dual effect also for potential IIH, however she has history of kidney stones, and I would rather avoid that for now pending further evaluation and workup when follow up in [facility]. Can utilize headache cocktail while admitted for acute treatment of headache Can start Amitriptyline for migraine prophylaxis Counseled patient about medication overuse headache Follow up in headache clinic and ophthalmology clinic I personally attended this patient and spent a total time of 60 minutes evaluating this patient including clinical assessment, review of chart, medical history imaging, and determining appropriate treatment and workup. HPI Consult Data Date of Consult: 11/18/24 HPI Narrative HPI Narrative: ?44 yo woman with HTN on HCTZ, arthritis who is presenting with stroke like symptoms She went to sleep around 1 am on Monday night, and woke up Monday morning with right arm numbness and tingling, vision issues and headache. Headache squeezing, mostly in the bilateral frontal, at times back of the head, 7/10, +photophobia, No nausea/vomiting. Vision changes described as ?everything felt tilted to the right a little bit?. Tingling/numbness and vision changes started going away gradually after about 5 hours as ?she received Toradol. However, headache persisted. Never had such symptoms in the past She gets headache on a daily basis for over a year now, but never with the sensory/vision changes. Headaches usually are similar to the one this presentation, and associated with photophobia/phonophobia. She takes Tylenol everyday for headache and joint pian. Headache are worse when she lays down, whooshing in the ear, non-pulsatile, for couple months now. Sometimes gets tunneled vision/blurry vision but associated it more with standing up too quick, at times happened when she is driving. CT brain and CTA head/neck were unremarkable. Chest x-ray unremarkable. CBC and BMP unremarkable. She was mildly hypertensive to the 140s over 100s and mildly tachycardic but both of these improved with treatment for her headache. MRI brain with no acute findings. This morning, she continues to have headache, but the rest of her symptoms have resolved per above. PHYSICAL EXAM: Exam performed with help of the nurse/GERSON present with patient on Tele site NEURO: AAOx3, follows commands, no aphasia/dysarthria. PERRL, EOMIno gaze preference/nystagmus. Face symmetric, Intact facial sensation. Tongue midline. Head turning intact. Sensation: intact to light touch all over Motor: All extremities antigravity Coordination: FTN intact bilaterally PFSH Medical History Hypertension delivery delivered DIC (disseminated intravascular coagulation) Anemia Home Medications ?Medication ?Instructions ?Recorded ?Last Taken ?Type hydrochlorothiazide 25 mg tablet 25 mg PO DAILY WATER PILL 06/19/21 11/16/24 History acetaminophen 325 mg tablet 1,000 mg (3.0769 x 325 mg) PO Q8H 11/18/24 Unknown Rx PRN PRN Pain 1-10 Or Fever>100.7 #0 tabs ibuprofen 200 mg tablet 800 mg (4 x 200 mg) PO Q8H PRN 11/18/24 Unknown Rx pain #10 tabs sumatriptan succinate 50 mg tablet See Rx Instructions PO .COMPLEX 11/18/24 Unknown Rx (Imitrex) #10 tabs Allergy/AdvReac Type Severity Reaction Status Date / Time No Known Allergies Allergy Verified 11/17/24 11:45 Surgical History Hx of appendectomy History of cholecystectomy H/O: hysterectomy Social History (Updated 11/17/24 @ 15:39 by Jacquelyn Brennan) Smoking Status: Current every day smoker tobacco type: e-cigarettes Vital Signs Vital Signs Vital Signs: 11/17/24 19:00 11/17/24 19:12 11/17/24 23:07 Temperature 97.9 F 97.9 F Temperature Source Oral Oral Pulse Rate 69 72 72 Pulse Strength Respiratory Rate 15 15 Respiratory Effort Respiratory Depth Respiratory Pattern Blood Pressure 133/79 H 121/76 H Blood Pressure Mean 97 91 Blood Pressure Source Monitor Monitor Blood Pressure Position Semi-Fowlers Left Lateral Blood Pressure Location Right Forearm Left Forearm Pulse Ox 96 96 Oxygen Delivery Method Room Air Room Air 11/18/24 00:10 11/18/24 03:11 11/18/24 07:00 Temperature 98.0 F Temperature Source Oral Pulse Rate 67 Pulse Strength Respiratory Rate 4 L Respiratory Effort Respiratory Depth Respiratory Pattern Blood Pressure 114/73 Blood Pressure Mean 86 Blood Pressure Source Monitor Blood Pressure Position Right Lateral Blood Pressure Location Left Forearm Pulse Ox 92 98 Oxygen Delivery Method Room Air Room Air Room Air 11/18/24 07:14 11/18/24 07:15 11/18/24 08:23 Temperature 98 F 98 F Temperature Source Oral Oral Pulse Rate 69 69 Pulse Strength Respiratory Rate 16 16 Respiratory Effort Normal Non-Labored Respiratory Depth Normal Respiratory Pattern Normal Blood Pressure 138/83 H 138/83 H Blood Pressure Mean 101 101 Blood Pressure Source Monitor Monitor Blood Pressure Position Supine Supine Blood Pressure Location Left Forearm Left Forearm Pulse Ox 95 95 Oxygen Delivery Method Room Air Room Air Room Air 11/18/24 08:28 11/18/24 09:32 11/18/24 14:35 Temperature 98.3 F 98.6 F Temperature Source Oral Oral Pulse Rate 76 80 Pulse Strength Weak (1+) Respiratory Rate 16 16 Respiratory Effort Respiratory Depth Respiratory Pattern Blood Pressure 127/73 H 124/84 H Blood Pressure Mean 91 97 Blood Pressure Source Monitor Monitor Blood Pressure Position Sitting Semi-Fowlers Blood Pressure Location Left Forearm Left Arm Pulse Ox 97 96 Oxygen Delivery Method Room Air Room Air 11/18/24 14:42 11/18/24 14:50 Temperature 98.6 F Temperature Source Oral Pulse Rate 80 Pulse Strength Respiratory Rate 16 Respiratory Effort Normal Non-Labored Respiratory Depth Normal Respiratory Pattern Normal Blood Pressure 124/84 H Blood Pressure Mean 97 Blood Pressure Source Monitor Blood Pressure Position Semi-Fowlers Blood Pressure Location Left Forearm Pulse Ox 96 Oxygen Delivery Method Room Air Room Air Weight Weight: 129.9 kg Body Mass Index (BMI) 49.1 EEG Results Procedure Details EEG Procedure Details: DUY DARLING is a 44 year old F with a past medical history of , who presents for evaluation of Electroencephalogram on DATE at TIME NIHSS NIHSS Nursing Documentation NIHSS Nursing Documentation: NIHSS: Ischemic Stroke/TIA Start: 11/17/24 15:19 Text: For PCU Patients: NIH and Neuro Check every 4 Status: Complete hours, PRN and with change in RN caregiver. Freq: [id number] Protocol: Activity Type Activity Date Activity User E-sign Co-sign Detail Recorded Client Recorded Date Recorded By Document 11/18/24 09:36 GEOFFREY [id number] 11/18/24 09:40 GEOFFREY 11/18/24 09:36 NIH Stroke Scale [NIHSS] A score of 0 is normal or asymptomatic . Total possible score is 42. Inpatient: RN or Physician to activate a stroke alert for onset of new stroke symptoms or with NIHSS increase >/= 3 points. Following change in neurological status, NIHSS will be performed per physician order or more frequently PRN. -1a. Level of Consciousness Alert; keenly responsive -1b. LOC Questions Answers BOTH questions correctly. -1c. LOC Commands Performs both tasks correctly . -2. Best Gaze Normal -3. Visual No visual loss -4. Facial Palsy Normal symmetrical movements -5a. Left Arm No drift; arm holds 90 (or 45 ) degrees for full 10 seconds -5b. Right Arm No drift; arm holds 90 (or 45 ) degrees for full 10 seconds -6a. Left Leg No drift; leg holds 30-degree position for full 5 seconds -6b. Right Leg No drift; leg holds 30-degree position for full 5 seconds -7. Limb Ataxia Absent -8. Sensory Normal; no sensory loss -9. Best Language No aphasia; normal -10. Dysarthria Normal -11. Extinction and Inattention No abnormality -Total 0 Query Text:A score of 0 is normal or asymptomatic. Total possible score is 42 . ED: Notify Physician for NIHSS increase by > / = 3 points. Inpatient: RN or Physician to activate a stroke alert for NIHSS increase of > / = 3 points. Coma Scale [Assess] -Eye Opening Spontaneous -Motor Obeys Commands -Verbal Oriented [Total] -Coma Scale Total 15 Lab / Micro Data 11/18/24 05:25 11/18/24 05:25 Labs: Laboratory Results - last 24 hr 11/17/24 16:12: Troponin T Hi Sens 4Hr 15 H 11/18/24 05:25: WBC 7.1, RBC 4.18 L, Hgb 11.8 L, Hct 35.7 L, MCV 85.4, MCH 28.2, MCHC 33.1, RDW Std Deviation 38.3, RDW Coeff of Sammi 12.2, Plt Count 320, MPV 9.8, Sodium 138, Potassium 3.6, Chloride 103, Carbon Dioxide 22.8, Anion Gap 12, BUN 14, Creatinine 0.78, Estim Creat Clear Calc 125.75, Est GFR (MDRD) Non-Af 97, BUN/Creatinine Ratio 18.2, Glucose 112 H, Calcium 8.7, Triglycerides 129, Cholesterol 149, LDL Cholesterol, Calc 81, VLDL Cholesterol 26, HDL Cholesterol 43, Cholesterol/HDL Ratio 3.49 Imaging Radiology Impression Echocardiogram 11/17/24 14:39 Interpretation Summary Bubble contrast study is negative for PFO/ASD. Normal LV size. Left ventricular systolic function is normal. The left ventricular ejection fraction is 60 %. Structurally normal valves. Ordering Physician: Kavon Lord Referring Physician: ERICKSON PCP Performed By: Latrice Pate RCS Brain MRI 11/18/24 09:00 IMPRESSION: 1. Normal MRI of the brain. Reading Location: [facility]
== END 2024-11-18 14:50 | disposition home or self-care (01) ==
LOC: ED 14:39 → PCU 14:47
PROVIDERS: Admitting Provider Hospitalist; Emergency Provider Emergency Medicine
DX: G43.909 Migraine, unspecified, not intractable, without status migrainosus (principal); Z68.42 Body mass index [BMI] 45.0-49.9, adult; E66.813 Obesity, class 3; H53.9 Unspecified visual disturbance; R20.0 Anesthesia of skin; M79.601 Pain in right arm; I10 Essential (primary) hypertension; F17.290 Nicotine dependence, other tobacco product, uncomplicated; Z79.899 Other long term (current) drug therapy
CPT/HCPCS: 36415; 70450; 70496; 70498; 70551; 71045; 80048; 80061; 82962; 83036; 83880; 84443; 84484; 85025; 85027; 85610; 85730; 92610; 93005; 93306; 96361; 96374; 96375; 97161; 97165; 97802; 99221; 99285; Q9967; A4216; G0378